=== PATIENT | male | born 1990 | race Caucasian/White ===

== ENCOUNTER 2021-02-14 02:40 | Emergency (ER) | payer MEDICAID ==
[~2021-02-14] VITALS: Ht 170.2 cm; Wt 86.2 kg
[2021-02-14 02:54] VITALS: BP 123/76
[2021-02-14] MEDS ORDERED: GUAI-671 PO (03:10)
== END 2021-02-14 03:22 | disposition home or self-care (01) ==
LOC: ER 02:45
DX: J02.8 Acute pharyngitis due to other specified organisms (principal); Z79.899 Other long term (current) drug therapy
CPT/HCPCS: 71045-TC